=== PATIENT | male | born 1985 | race Caucasian/White ===

== ENCOUNTER 2021-04-10 20:03 | Emergency (ER) | payer OTHER ==
--- OUTSIDE RECORDS SUMMARY | 2021-04-10 20:07 | XMS REPORT | Continuity of Care Document ---
:1985 Author Organization [facility] t Address [address] [place] [address] Care Team Providers Name Role Phone Lynne SALMON Primary Care Physician LYNNE Attending Clinician Unavailable Diana CHURCH Attending Clinician Unavailable WILFREDO ARAMBULA Attending Clinician Unavailable WILFREDO ARAMBULA Attending Clinician Unavailable Payers Payer Name Policy Type Policy Number Effective Date Expiration Date S our SPECIAL INSURANCE [id number] 2020 SERVICES 00:00:00 Problems Condition Condition Condition Status Onset Resolution Last Treating Co mments Source Name Details Category Date Date Treatment Clinician Date Other Other Disease [place] psychoacti psychoacti 2-04 He alth ve ve 00:00: substance substance 00 abuse, abuse, uncomplica uncomplica cristian cristian Myasthenia Myasthenia Disease Active [facility] gravis gravis 05-31 Health 00:00: 00 Allergies, Adverse Reactions, Alerts Allergy Allergy Status Severity Reaction(s) Onset Inactive Treating Comm ents Source Name Type Date Date Clinician NO KNOWN Drug Active [facility] ALLERGIE Class ity of [facility] Social History Social Habit Start Date Stop Date Quantity Comments Source Exposure to Not sure [facility] SARS-CoV-2 (event) Alcohol intake 2021-02-07 2021-02-07 Lifetime [place] [facility] 00:00:00 00:00:00 non-drinker (finding) Tobacco use and 2020-10-25 2020-10-25 Smokeless tobacco [place] [facility] exposure 00:00:00 00:00:00 non-user Sex Ass[birth year] At [birth year] [facility] 00:00:00 00:00:00 Smoking Status Start Date Stop Date Source Never smoked tobacco [facility] Medications Ordered Filled Start Stop Current Ordering Indication Dosage Frequency Signature Comments Components Source Medication Medication Date Date Medication? Clinician (SIG) Name Name metFORMIN 2020-05- No 500mg QD Take 500 [facility] (Glucophage 0-06 10-06 mg by Health ) 500 MG 16:18: 00:00 mouth 1 tablet 32 :00 (one) time each day. tiZANidine Yes [facility] (Zanaflex) 9-22 Health 4 MG tablet 00:00: 00 glimepiride Yes 2mg QD Take 2 mg U T (Amaryl) 2 -22 by mouth 1 Hea lth MG tablet 00:00: (one) time 00 each day. metFORMIN Yes 1000mg Q.5D Take 1,000 [facility] (Glucophage 9-22 mg by Health ) 1000 MG 00:00: mouth 2 tablet 00 (two) times a day. buprenorphi Yes 1{tbl} Q.5D Place 1 U T ne-naloxone 9- tablet Health (Suboxone) 10:52: under the 8-2 MG SL 17 tongue 2 tablet (two) times a day. Melatonin Yes Take by UT 10 MG 9-09 mouth. Health capsule 10:52: 17 predniSONE Yes 20mg 20 mg. UT (Deltasone) 3-15 Health 20 MG 00:00: tablet 00 pyridostigm 0 Yes 60mg 60 mg. UT ine 7-29 Health (Mestinon) 00:00: 60 MG 00 tablet escitalopra 0 Yes 10mg 10 mg. UT m (Lexapro) 4-07 Health 10 MG 00:00: tablet 00 Vital Signs Vital Name Observation Time Observation Value Comments Source Systolic blood pressure 2021-02-07 18:16:00 134 mm[Hg] [facility] Diastolic blood pressure 2021-02-07 18:16:00 88 mm[Hg] [facility] Heart rate 2021-02-07 18:16:00 75 /min [facility] Body temperature 2021-02-07 18:16:00 36.44 Magalie [facility] ealt Body height 2021-02-07 18:16:00 182.9 cm [facility] Body weight 2021-02-07 18:16:00 98.431 kg [facility] BMI 2021-02-07 18:16:00 29.43 kg/m2 [facility] Procedures Procedure Date / Time Performed Performing Clinician Sour e POCT URINE DRUG SCREEN 2021-02-07 21:24:00 Cata Batista [facility] Encounters Start End Encounter Admission Attending Care Care Encounter Source Date/Time Date/Time Type Type Clinicians Facility Department ID 2021-02-15 Outpatient [facility] [id number] [place] 15:54:05 [id number] [facility] 2021-02-13 Outpatient [facility] [id number] [place] 11:06:57 CATA Joshi 2021-02-07 2021-02-07 Office YOLANDA Batista [id number] [place] 13:18:49 15:34:02 Visit Cata HILARIO [id number] [facility] [id number] [place] [id number] 2020-08-07 2020-08-07 Outpatient Jame CHURCH [facility] [id number] [facility] 10:40:00 10:40:00 AV[facility] 2020-08-06 2020-08-06 Outpatient [facility] [id number] [facility] 14:05:00 14:05:00 [facility] 2020-07-09 2020-07-09 Outpatient Jame CHURCH [facility] [id number] [facility] 14:50:00 14:50:00 AVA [facility] 2019-12-03 2019-12-03 Outpatient PATRICK BUENO [facility] [id number] [facility] 11:00:00 11:00:00 PATRICK ARAMBULA [facility] 2019-12-03 2019-12-03 Outpatient PATRICK ARAMBULA [facility] [id number] [facility] 11:00:00 11:00:00 PATRICK ARAMBULA [id number] [facility] Results Test Description Test Time Test Comments Results Result Comments Source POCT urine drug screen 2021-02-07 21:24:00 Test Item Value Reference Range Interpretation Comme nts THC (test code = 2420080) Negative Cocaine Screen, Urine (test code = 18789-3) None Detected None Dete cted Amphetamine Screen, Urine (test code = 9232876) Negative Methamphetamine, POC (test code = 64086-7) Negative Negative Morphine (MOP/ZFF1425) (test code = 4504301) Negative MDMA URINE (test code = 23655-5) Negative ng/mL Barbiturate Screen, Ur (test code = 36592-6) None Detected None Det ected Benzodiazepine Ur Qual (test code = 27934-4) Negative Methadone (MTD) (test code = 7038116) Negative Oxycodone Screen, Ur (test code = 18446-5) Negative PCP Scrn, Ur (test code = 40319-9) Negative TCA, Urine (test code = 11226-4) None Detected Buprenorphine, Urine (test code = 3414-0) Negative Lab Interpretation (test code = 85292-7) Abnormal [place] [facility]
[2021-04-10] MEDS ORDERED: TETANUS & DIPHTHERIA TOX,ADULT 0.5 ML VIAL ONE (20:39)
[2021-04-10] MEDS ORDERED: LIDOCAINE 1% 20 ML MDV ONE (20:39)
[2021-04-10] MEDS ORDERED: ACETAMINOPHEN 500 MG TAB ONE (20:39)
[2021-04-10 20:56] LABS: Absolute Lymphocytes (CBC) 2.1 K/uL (0.7-4.9); Basophils % 0.9 % (0-1.3); Lymphocytes % 21.5 % (15.3-44.8); MPV 7.8 fL (7.6-11.3); RBC Red Blood Cell Count 4.85 M/uL (4.33-5.43)
[2021-04-10 21:25] LABS: Albumin 4.3 g/dL (3.4-5.0); Bilirubin Total 0.3 mg/dL (0.2-1.0); Potassium 3.6 mmol/L (3.5-5.1); Protein, Total 8.4 g/dL (6.4-8.2)
[2021-04-10] MEDS ORDERED: ONDANSETRON 4 MG/2 ML VIAL ONE (21:25)
[2021-04-10] MEDS ORDERED: FENTANYL CITR 100 MCG/2 ML ONE (21:25)
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
--- NOTE | 2021-04-10 21:47 | RAD REPORT ---
EXAM DESCRIPTION: RAD - Knee Right 3 View - 04/10/2021 9:10 pm CLINICAL HISTORY: Right knee pain status post injury FINDINGS: Curvilinear lucencies within the inferior aspect of the patella probably nondisplaced frac ture. No dislocation. Soft tissue laceration
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
[2021-04-10] MEDS ORDERED: HYDROMORPHONE HCL 1 MG/ML INJ ONE (22:28)
[2021-04-10] MEDS ORDERED: LIDOCAINE 1% W/EPI 1:100,000 MDV 50 ML VIAL ONE (22:28)
[2021-04-10] MEDS ORDERED: NA CHLORIDE 0.9% 1,000 ML ONE (22:56)
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
[2021-04-11 01:59] VITALS: TEMP 97.6
[2021-04-11 02:03] VITALS: BP 91/66; O2SAT 96
== END 2021-04-11 01:51 | disposition home or self-care (01) ==
LOC: ER 20:03
PROC: 0JQJ0ZZ Repair Right Hand Subcutaneous Tissue and Fascia, Open Approach (ICD-10-PCS; principal; 2021-04-11)
PROC: 0JQN0ZZ Repair Right Lower Leg Subcutaneous Tissue and Fascia, Open Approach (ICD-10-PCS; 2021-04-11)
DX: S62.315A Displaced fracture of base of fourth metacarpal bone, left hand, initial encounter for closed fracture (principal); S82.001A Unspecified fracture of right patella, initial encounter for closed fracture; S81.011A Laceration without foreign body, right knee, initial encounter; S61.411A Laceration without foreign body of right hand, initial encounter; S30.1XXA Contusion of abdominal wall, initial encounter; V49.40XA Driver injured in collision with unspecified motor vehicles in traffic accident, initial encounter; E11.9 Type 2 diabetes mellitus without complications; Z23 Encounter for immunization
CPT/HCPCS: 85025; 36415; 86900; 86850; 82565; 86901; 80053; 70450; 72125; 71260; 74177; 73130; 73562; 90471; 90714; 96375; 96374; 99285; 12004; Q9967; J3010; J1170; J7030; J2405

== ENCOUNTER 2024-12-23 12:23 | Emergency (ER) | payer SELFPAY ==
[2024-12-23 13:06] LABS: Urine Microscopic Reflex YN NO UMIC
[2024-12-23 13:07] LABS: Absolute Lymphocytes (CBC) 1.3 K/uL (0.7-4.9); Hematocrit 47.2 % (39.6-49.0); Hemoglobin 16.9 g/dL (13.6-17.9); MCH 29.7 pg (27.0-35.0); MCHC 35.8 g/dL (32.0-36.0); MCV 83.1 fL (80-100); MPV 7.5 fL (7.6-11.3); Nucleated RBC Absolute Count 0.0 (0-0); Nucleated Red Blood Cells % 0.5 % (0-0); RBC Red Blood Cell Count 5.68 M/uL (4.33-5.43); White Blood Count 6.40 thou/uL (4.3-10.9)
[2024-12-23 13:24] LABS: Influenza A Ag Negative; Influenza B Ag Negative; SARS-CoV-2 Antigen Rapid Res Negative (Negative)
[2024-12-23 13:25] LABS: ALT/SGPT 39.0 U/L (16-61); AST/SGOT 15.0 U/L (15-37); Albumin 4.0 g/dL (3.4-5.0); Albumin/Globulin Ratio 1.0 (1.1-1.8); Alkaline Phosphatase 50.0 U/L (45-117); Anion Gap 11.7 mEq/L (5.0-15.0); BUN Blood Urea Nitrogen 3.0 mg/dL (7-18); Globulin 3.9 g/dL (2.3-3.5); Glucose Level 278.0 mg/dL (74-106); Lipase 43.0 U/L (13-75); Potassium 2.7 mEq/L (3.5-5.1); Troponin High Sensitivity 6.2 pg/mL (<58.9)
--- NOTE | 2024-12-23 14:09 | RAD REPORT ---
EXAMINATION: TWO VIEW CHEST XR CLINICAL INDICATION: Male, 39 years old. [facility] MAIN COUGH Bed: TECHNIQUE: 2 view radiographs of the chest were performed. COMPARISON: 02/16/2013 FINDINGS: The lungs are well inflated and clear. No pneumothorax or sizable effusion. The heart is normal in si ze. Mediastinal contours are unchanged with sequelae of median sternotomy. IMPRESSION: No acute or significant abnormalities.
[2024-12-23] MEDS ORDERED: NA CHLORIDE 0.9% 1,000 ML ONE (14:55)
--- NOTE | 2024-12-23 15:39 | EDPHYS ---
Physician Documentation [facility] Name: Woo Ballesteros Age: 39 yrs Sex: Male : 1985 Arrival Date: 12/23/2024 Time: 12:23 Bed 8 Private MD: BENITA Physician Javy Flores HPI: 12/23 15:34 This 39 yrs old Male presents to ER via Ambulatory with complaints of Pain elma All Over, Vomiting. 15:34 The patient presents to the emergency department with nausea, vomiting. Onset: The elma symptoms/episode began/occurred 3 day(s) ago. Possible causes: unknown. The symptoms are aggravated by movement, The symptoms are alleviated by remaining still. Associated signs and symptoms: Pertinent positives: anorexia, nausea, vomiting. Severity of symptoms: At their worst the symptoms were mild moderate in the emergency department the symptoms are unchanged. The patient has experienced similar episodes in the past, multiple times. Historical: - Allergies: 12:35 No Known Drug Allergies; me1 - PMHx: 12:35 diabetes mellitus; muscular dystrophy; Myasthenia Gravis; me1 - PSHx: 12:35 ear tubes; Thymectomy; me1 - Immunization history:: Adult Immunizations up to date. - Infectious Disease History:: Denies. - Social history:: Smoking status: Patient denies any tobacco usage or history of. ROS: 15:35 Constitutional: Negative for fever, chills, and weight loss, Eyes: Negative for injury, elma pain, redness, and discharge, ENT: Negative for injury, pain, and discharge, Neck: Negative for injury, pain, and swelling, Cardiovascular: Negative for chest pain, palpitations, and edema, Respiratory: Negative for shortness of breath, cough, wheezing, and pleuritic chest pain, Back: Negative for injury and pain, : Negative for injury, bleeding, discharge, and swelling, MS/Extremity: Negative for injury and deformity, Skin: Negative for injury, rash, and discoloration, Psych: Negative for depression, anxiety, suicide ideation, homicidal ideation, and hallucinations, Allergy/Immunology: Negative for hives, rash, and allergies, Endocrine: Negative for neck swelling, polydipsia, polyuria, polyphagia, and marked weight changes, Hematologic/Lymphatic: Negative for swollen nodes, abnormal bleeding, and unusual bruising, 15:35 Abdomen/GI: Positive for nausea and vomiting, 15:35 Neuro: Positive for weakness, Exam: 14:59 ECG was reviewed by the Attending Physician. elma 15:35 Constitutional: This is a well developed, well nourished patient who is awake, alert, elma and in no acute distress. Head/Face: Normocephalic, atraumatic. Eyes: Pupils equal round and reactive to light, extra-ocular motions intact. Lids and lashes normal. Conjunctiva and sclera are non-icteric and not injected. Cornea within normal limits. Periorbital areas with no swelling, redness, or edema. ENT: Nares patent. No nasal discharge, no septal abnormalities noted. Tympanic membranes are normal and external auditory canals are clear. Oropharynx with no redness, swelling, or masses, exudates, or evidence of obstruction, uvula midline. Mucous membranes moist. Neck: Trachea midline, no thyromegaly or masses palpated, and no cervical lymphadenopathy. Supple, full range of motion without nuchal rigidity, or vertebral point tenderness. No Meningismus. Chest/axilla: Normal chest wall appearance and motion. Nontender with no deformity. No lesions are appreciated. Cardiovascular: Regular rate and rhythm with a normal S1 and S2. No gallops, murmurs, or rubs. Normal PMI, no JVD. No pulse deficits. Respiratory: Lungs have equal breath sounds bilaterally, clear to auscultation and percussion. No rales, rhonchi or wheezes noted. No increased work of breathing, no retractions or nasal flaring. Abdomen/GI: Soft, non-tender, with normal bowel sounds. No distension or tympany. No guarding or rebound. No evidence of tenderness throughout. Back: No spinal tenderness. No costovertebral tenderness. Full range of motion. Male : Normal genitalia with no discharge or lesions. Skin: Warm, dry with normal turgor. Normal color with no rashes, no lesions, and no evidence of cellulitis. MS/ Extremity: Pulses equal, no cyanosis. Neurovascular intact. Full, normal range of motion., bilateral aka Neuro: Awake and alert, GCS 15, oriented to person, place, time, and situation. Cranial nerves II-XII grossly intact. Motor strength 5/5 in all extremities. Sensory grossly intact. Cerebellar exam normal. Normal gait. Psych: Awake, alert, with orientation to person, place and time. Behavior, mood, and affect are within normal limits. Vital Signs: 12:33 BP 151 / 105; Pulse 96; Resp 18; Temp 98.5; Pulse Ox 100% ; Weight 97.52 kg; Height 6 me1 ft. 0 in. ; Pain 3/10; 15:02 BP 150 / 88; Pulse 84; Resp 16; Pulse Ox 99% ; bp 16:14 BP 147 / 79; Pulse 75; Resp 16; Pulse Ox 98% ; bp 12:33 Body Mass Index 29.16 (97.52 kg, 182.88 cm) me1 12:33 Pain Scale: Adult me1 Karen Coma Score: 15:36 Eye Response: spontaneous(4). Motor Response: obeys commands(6). Verbal Response: elma oriented(5). Total: 15. MDM: 12:27 Medical Screening Exam initiated elma 15:36 Data reviewed: vital signs, nurses notes, lab test result(s), EKG. [facility] 12/23 12:29 Order name: CBC with Diff; Complete Time: 15:[address] [facility] 12/23 12:29 Order name: CMP; Complete Time: 15:[address] [facility] 12/23 12:29 Order name: Lipase; Complete Time: 15:[address] [facility] 12/23 12:29 Order name: UA Rfx Raimundo Cult if indicated; Complete Time: 15:[address] [facility] 12/23 12:29 Order name: Troponin High Sensitivity; Complete Time: 15:[address] [facility] 12/23 12:29 Order name: COVID-19 Ag + Flu A+B Ag; Complete Time: 15:[address] [facility] 12/23 12:29 Order name: Chest Pa And Lat (2 Views) XRAY; Complete Time: 15:[address] [facility] 12/23 12:29 Order name: EKG - Nurse/Tech; Complete Time: 14:[address] [facility] 12/23 15:27 Order name: Misc. Order: juice; Complete Time: 15:[address] [facility] EC:59 Rate is 79 beats/min. Rhythm is regular. QRS [place] is Normal. HI interval is normal. QRS elma interval is normal. QT interval is normal. No Q waves. T waves are Normal. Clinical impression: NSR w/ Non-specific ST/T Changes and No evidence of ischemia. Interpreted by me. Reviewed by me. Administered Medications: 15:02 Drug: NS 0.9% IV 1000 ml IV at 1000 ml once; to be given as a bolus over 60 minutes bp Route: IV; Rate: 1000 ml; Site: right antecubital; 16:15 Follow up: IV Status: Completed infusion bp 15:58 Drug: Potassium PO Effervescent Tablet 50 mEq PO once; dissolve in 4 ounces of water or bp juice Route: PO; 15:59 Follow up: Response: No adverse reaction bp 15:58 Drug: MethylPrednisoLONE IVP 125 mg IVP once Route: IVP; Site: right antecubital; bp 15:59 Follow up: Response: No adverse reaction bp 15:58 Drug: Famotidine IVP 20 mg IVP once; dilute with 10 mL 0.9% NaCl; give over 2 minutes bp Route: IVP; Site: right antecubital; 15:59 Follow up: Response: No adverse reaction bp 15:58 Drug: Potassium PO Effervescent Tablet 25 mEq PO once; dissolve in 4 ounces of water or bp juice prior to discharge Route: PO; 15:59 Follow up: Response: No adverse reaction bp 15:59 Drug: Ondansetron IVP 4 mg IVP once; over 2 minutes Route: IVP; Site: right antecubital;bp 15:59 Follow up: Response: No adverse reaction bp Disposition Summary: 12/23/24 15:38 Discharge Ordered Notes: Location: Home elma Problem: new elma Symptoms: have improved elma Condition: Stable elma Diagnosis - Hypokalemia elma - Type 2 diabetes mellitus with hyperglycemia elma - Weakness elma - Vomiting elma - Hypo-osmolality and hyponatremia elma - Myasthenia gravis elma - Unspecified symptoms and signs involving the musculoskeletal system - hx of elma MUSCULAR DYSTROPHY Followup: elma - With: Private Physician - When: 2 - 3 days - Reason: Recheck today's complaints, Continuance of care, Re-evaluation by your physician Discharge Instructions: - Discharge Summary Sheet elma - Potassium Content of Foods elma - Hyperglycemia elma - Hyponatremia elma - Weakness elma - Diabetes Mellitus and Nutrition, Adult elma - Hyponatremia, [id number] elma - Weakness, [id number] elma - Hypokalemia elma - Deconditioning elma Forms: - Medication Reconciliation Form elma - Antibiotic Education elma - Prescription Opioid Use elma - Patient Portal Instructions elma - Leadership Thank You Letter elma Prescriptions: - ondansetron 4 mg Oral Tablet,disintegrating - take 1 tablet ORAL route every 6 hours as needed for nausea and vomiting; 20 elma tablet; Refills: 0, Product Selection Permitted - Potassium Chloride 20 meq Oral Packet - take 1 packet ORAL route every 12 hours 1 packet in 6 (six) ounces of water or elma juice; Take after meal; 14 packet; Refills: 0, Product Selection Permitted Signatures: Dispatcher [employer] EDMS Javy Flores MD MD cha Peltier, Brian, RN RN bp Lizzie Gibson RN RN me1 Corrections: (The following items were deleted from the chart) 12:29 CBC+H.LAB.BRZ ordered. EDMS EDMS 12:29 COMPREHENSIVE METABOLIC PANEL+C.LAB.BRZ ordered. EDMS EDMS 12:29 LIPASE+C.LAB.BRZ ordered. EDMS EDMS 12:29 UA Rfx Raimundo Cult if indicated+U.LAB.BRZ ordered. EDMS EDMS : 12:29 Troponin High Sensitivity+C.LAB.BRZ ordered. EDMS EDMS : 12:29 COVID-19 Ag + Flu A+B Ag+I.LAB.BRZ ordered. EDMS EDMS 12: 12:29 Chest Pa And Lat (2 Views)+RAD.RAD.BRZ ordered. EDMS EDMS
--- NOTE | 2024-12-23 15:39 | ER ---
Nurse's Notes [facility] Name: Woo Ballesteros Age: 39 yrs Sex: Male : 1985 Arrival Date: 12/23/2024 Time: 12:23 Bed 8 Private MD: Diagnosis: Hypokalemia;Type 2 diabetes mellitus with hyperglycemia;Weakness;Vomiting;Hypo-osmolality and hyponatremia;Myasthenia gravis;Unspecified symptoms and signs involving the musculoskeletal system-hx of MUSCULAR DYSTROPHY Presentation: 12/23 12:33 Chief complaint: Patient states: sob, n/v x 5 day, unable to keep meds down. Takes me1 prednisone for Myasthenia gravis and hasnt been able to keep meds down. Coronavirus screen: Vaccine status: Patient reports receiving the 2nd dose of the covid vaccine. Ebola Screen: No symptoms or risks identified at this time. Initial Sepsis Screen: Does the patient meet any 2 criteria? HR > 90 bpm. Does the patient have a suspected source of infection? No. Patient's initial sepsis screen is negative. Risk Assessment: Do you want to hurt yourself or someone else? Patient reports no desire to harm self or others. Onset of symptoms was December 18, 2024. 12:33 Method Of Arrival: Ambulatory [facility] [place] 12:33 Acuity: MARK 3 me1 Triage Assessment: 15:03 General: Appears in no apparent distress. Behavior is calm, cooperative, appropriate bp for age. Pain: Complains of pain in GENERALIZED. EENT: No deficits noted. Neuro: No deficits noted. Cardiovascular: No deficits noted. Respiratory: No deficits noted. GI: Reports nausea. : No signs and/or symptoms were reported regarding the genitourinary system. Derm: No deficits noted. Musculoskeletal: No deficits noted. Historical: - Allergies: 12:35 No Known Drug Allergies; me1 - PMHx: 12:35 diabetes mellitus; muscular dystrophy; Myasthenia Gravis; me1 - PSHx: 12:35 ear tubes; Thymectomy; me1 - Immunization history:: Adult Immunizations up to date. - Infectious Disease History:: Denies. - Social history:: Smoking status: Patient denies any tobacco usage or history of. Screenin:03 [facility] ED Fall Risk Assessment (Adult) History of falling in the last 3 months, bp including since admission No falls in past 3 months (0 pts) Confusion or Disorientation No (0 pts) Intoxicated or Sedated No (0 pts) Impaired Gait No (0 pts) Mobility Assist Device Used No (0 pt) Altered Elimination No (0 pt) Score/Fall Risk Level 0 - 2 = Low Risk Oriented to surroundings. Abuse screen: Denies threats or abuse. Denies injuries from another. Nutritional screening: No deficits noted. Tuberculosis screening: No symptoms or risk factors identified. Assessment: 15:03 General: SEE TRIAGE NOTE. GI: Abdomen is non-distended. bp Vital Signs: 12:33 BP 151 / 105; Pulse 96; Resp 18; Temp 98.5; Pulse Ox 100% ; Weight 97.52 kg; Height 6 me1 ft. 0 in. ; Pain 3/10; 15:02 BP 150 / 88; Pulse 84; Resp 16; Pulse Ox 99% ; bp 16:14 BP 147 / 79; Pulse 75; Resp 16; Pulse Ox 98% ; bp 12:33 Body Mass Index 29.16 (97.52 kg, 182.88 cm) me1 12:33 Pain Scale: Adult me1 [place] Coma Score: 15:36 Eye Response: spontaneous(4). Motor Response: obeys commands(6). Verbal Response: elma oriented(5). Total: 15. ED Course: 12:25 Patient arrived in ED. im 12:27 Javy Flores MD is Attending Physician. [facility] 12:35 Triage completed. me1 12:35 Arm band placed on Patient placed in waiting room. me1 12:55 COVID-19 Ag + Flu A+B Ag Sent. ts3 12:55 Initial lab(s) drawn, by stucco laborer, sent to lab. Inserted saline lock: 18 gauge in right ts3 antecubital area, using aseptic technique. Blood collected. Flushed with 10 mL NS. 12:55 Urine collected: clean catch specimen, sent to lab. ts3 13:35 Chest Pa And Lat (2 Views) XRAY In Process Unspecified. EDMS 14:51 EKG done, by emergency room technician. ts3 14:58 Js Sage, RN is Primary Nurse. bp 15:03 Patient has correct armband on for positive identification. bp 16:14 No provider procedures requiring assistance completed. IV discontinued, intact, bp bleeding controlled, No redness/swelling at site. Pressure dressing applied. Administered Medications: 15:02 Drug: NS 0.9% IV 1000 ml IV at 1000 ml once; to be given as a bolus over 60 minutes bp Route: IV; Rate: 1000 ml; Site: right antecubital; 16:15 Follow up: IV Status: Completed infusion bp 15:58 Drug: Potassium PO Effervescent Tablet 50 mEq PO once; dissolve in 4 ounces of water or bp juice Route: PO; 15:59 Follow up: Response: No adverse reaction bp 15:58 Drug: MethylPrednisoLONE IVP 125 mg IVP once Route: IVP; Site: right antecubital; bp 15:59 Follow up: Response: No adverse reaction bp 15:58 Drug: Famotidine IVP 20 mg IVP once; dilute with 10 mL 0.9% NaCl; give over 2 minutes bp Route: IVP; Site: right antecubital; 15:59 Follow up: Response: No adverse reaction bp 15:58 Drug: Potassium PO Effervescent Tablet 25 mEq PO once; dissolve in 4 ounces of water or bp juice prior to discharge Route: PO; 15:59 Follow up: Response: No adverse reaction bp 15:59 Drug: Ondansetron IVP 4 mg IVP once; over 2 minutes Route: IVP; Site: right antecubital;bp 15:59 Follow up: Response: No adverse reaction bp Medication: 15:03 VIS not applicable for this client. bp Outcome: 15:38 Discharge ordered by . elma 16:14 Discharged to home ambulatory, with family, bp 16:14 Condition: stable 16:14 Discharge instructions given to patient, family, Instructed on discharge instructions, follow up and referral plans. medication usage, Demonstrated understanding of instructions, follow-up care, medications, Prescriptions given X 2, 16:15 Patient left the ED. bp Signatures: Dispatcher [employer] Javy Stover MD MD cha Peltier, Brian, RN RN bp Genoveva Peraza Michelle, RN RN mi1 Adela Garcia ts3
[2024-12-23] MEDS ORDERED: METHYLPREDNISOLONE 125 MG INJ ONE (15:50)
[2024-12-23] MEDS ORDERED: POTASSIUM 25 MEQ EFFERV TAB ONE (15:50)
[2024-12-23] MEDS ORDERED: ONDANSETRON 4 MG/2 ML VIAL ONE (15:50)
[2024-12-23] MEDS ORDERED: FAMOTIDINE 20 MG/2 ML VIAL IV ONE (15:51)
[2024-12-23 17:47] VITALS: TEMP 98.5
[2024-12-23 17:49] VITALS: BP 147/79; O2SAT 98
== END 2024-12-23 16:15 | disposition home or self-care (01) ==
LOC: ER 12:23
DX: G70.00 Myasthenia gravis without (acute) exacerbation (principal); E11.65 Type 2 diabetes mellitus with hyperglycemia; E87.6 Hypokalemia; R53.1 Weakness; R11.10 Vomiting, unspecified; E87.1 Hypo-osmolality and hyponatremia; R29.91 Unspecified symptoms and signs involving the musculoskeletal system; G71.00 Muscular dystrophy, unspecified; Z11.52 Encounter for screening for COVID-19
CPT/HCPCS: 36415; 71046; 80053; 81003; 83690; 84484; 85025; 87428; 93005; 96361; 96374; 96375; 99284; J2405; J2919; J7030

== ENCOUNTER 2025-02-25 12:21 | Emergency (ER) | payer OTHER, SELFPAY ==
[2025-02-25 13:23] LABS: Absolute Lymphocytes (CBC) 1.2 K/uL (0.7-4.9); Hematocrit 45.3 % (39.6-49.0); Hemoglobin 16.1 g/dL (13.6-17.9); MCH 29.7 pg (27.0-35.0); MCHC 35.4 g/dL (32.0-36.0); MCV 83.8 fL (80-100); MPV 8.5 fL (7.6-11.3); Nucleated RBC Absolute Count 0.0 (0-0); Nucleated Red Blood Cells % 0.1 % (0-0); RBC Red Blood Cell Count 5.41 M/uL (4.33-5.43); White Blood Count 7.30 thou/uL (4.3-10.9)
[2025-02-25 13:32] LABS: ALT/SGPT 41.0 U/L (16-61); AST/SGOT 19.0 U/L (15-37); Albumin 3.8 g/dL (3.4-5.0); Albumin/Globulin Ratio 0.9 (1.1-1.8); Alkaline Phosphatase 60.0 U/L (45-117); Anion Gap 15.1 mEq/L (5.0-15.0); BUN Blood Urea Nitrogen 9.0 mg/dL (7-18); Globulin 4.4 g/dL (2.3-3.5); Glucose Level 224.0 mg/dL (74-106); Lipase 32.0 U/L (13-75); Potassium 3.1 mEq/L (3.5-5.1)
[2025-02-25] MEDS ORDERED: ONDANSETRON 4 MG/2 ML VIAL ONE (14:00)
[2025-02-25] MEDS ORDERED: METHYLPREDNISOLONE 125 MG INJ ONE (14:00)
[2025-02-25] MEDS ORDERED: POTASSIUM 25 MEQ EFFERV TAB ONE (14:01)
[2025-02-25] MEDS ORDERED: NA CHLORIDE 0.9% 2,000 ML ONE (14:01)
--- NOTE | 2025-02-25 14:40 | ER ---
Nurse's Notes [facility] Name: Woo Ballesteros Age: 39 yrs Sex: Male : 1985 Arrival Date: 02/25/2025 Time: 12:21 Bed 6 Private MD: Diagnosis: Gastroenteritis, nausea vomiting, myasthenia gravis, hypokalemia, hyponatremia Presentation: 02/25 12:30 Chief complaint: Patient states: nausea and vomiting x 8 days ago, unable to keep food aa5 down. Pt c/o abd aching/discomfort. 12:30 Onset of symptoms was February 2025. aa5 12:30 Acuity: MARK 3 aa5 12:30 Initial Sepsis Screen: Does the patient meet any 2 criteria? No. Patient's initial aa5 sepsis screen is negative. Does the patient have a suspected source of infection? No. Patient's initial sepsis screen is negative. Risk Assessment: Do you want to hurt yourself or someone else? Patient reports no desire to harm self or others. 12:30 Coronavirus screen: vomiting. Ebola Screen: Patient denies travel to an Ebola-affected [facility] area in the 21 days before illness onset. 12:30 Method Of Arrival: EMS: [facility] 12:30 Care prior to arrival: Glucose check: 229. aa5 Historical: - Allergies: 12:37 No Known Allergies; aa5 - PMHx: 12:37 diabetes mellitus; muscular dystrophy; Myasthenia Gravis; aa5 12:37 Opiod abuse- previous hx; aa5 - PSHx: 12:37 ear tubes; Thymectomy; aa5 - Immunization history:: Adult Immunizations unknown. - Infectious Disease History:: Denies. - Social history:: Smoking status: unknown. Screenin:30 [facility] ED Fall Risk Assessment (Adult) History of falling in the last 3 months, aa5 including since admission No falls in past 3 months (0 pts) Confusion or Disorientation No (0 pts) Intoxicated or Sedated No (0 pts) Impaired Gait No (0 pts) Mobility Assist Device Used No (0 pt) Altered Elimination No (0 pt) Score/Fall Risk Level 0 - 2 = Low Risk Oriented to surroundings, Maintained a safe environment, Educated pt \T\ family on fall prevention, incl call for assistance when getting out of bed, Assessed \T\ reinforced patient's understanding of fall precautions. Abuse screen: Denies threats or abuse. Nutritional screening: No deficits noted. Tuberculosis screening: No symptoms or risk factors identified. Assessment: 12:30 General: Appears comfortable, Behavior is calm, cooperative. Pain: Complains of pain in aa5 right upper quadrant, left upper quadrant, right lower quadrant and left lower quadrant Pain currently is 5 out of 10 on a pain scale. Quality of pain is described as aching, Pain began 1 week ago Is intermittent. Neuro: Level of Consciousness is awake, alert, obeys commands, Oriented to person, place, time, situation. Cardiovascular: Patient's skin is warm and dry. Respiratory: Airway is patent Respiratory effort is even, unlabored, Respiratory pattern is regular, symmetrical. GI: Abdomen is round non-distended, Bowel sounds present X 4 quads. Abd is soft and non tender X 4 quads. Reports intolerance of fluids, intolerance of food, nausea, vomiting. : No signs and/or symptoms were reported regarding the genitourinary system. EENT: No signs and/or symptoms were reported regarding the EENT system. Derm: Skin is pink, warm \T\ dry. Musculoskeletal: Range of motion: intact in all extremities. 13:15 Reassessment: Patient is alert, oriented x 3, equal unlabored respirations, skin aa5 warm/dry/pink. Pt ambulatory to restroom . 14:16 Reassessment: Patient and/or family updated on plan of care and expected duration. Pain ss level reassessed. Patient is alert, oriented x 3, equal unlabored respirations, skin warm/dry/pink. General: Appears in no apparent distress. 14:54 Reassessment: awaiting fluid completion prior to discharge. ap3 14:56 Reassessment: Patient and/or family updated on plan of care and expected duration. Pain ap3 level reassessed. Patient is alert, oriented x 3, equal unlabored respirations, skin warm/dry/pink. General: Appears in no apparent distress. Behavior is calm, cooperative, appropriate for age. Vital Signs: 12:30 BP 173 / 101; Pulse 96; Resp 18 S; Temp 98.2(O); Pulse Ox 97% on R/A; Weight 99.79 kg aa5 (R); Height 6 ft. 0 in. (R); Pain 5/10; 15:54 BP 154 / 87; Pulse 86; Resp 17; Pulse Ox 100% on R/A; ap3 12:30 Body Mass Index 29.84 (99.79 kg, 182.88 cm) aa5 12:30 Pain Scale: Adult aa5 ED Course: 12:30 Patient arrived in ED. eb 12:30 Client placed on continuous cardiac and pulse oximetry monitoring. NIBP monitoring aa5 applied. monitor car operator on. Pulse ox on. NIBP on. 12:30 Patient has correct armband on for positive identification. Bed in low position. Call aa5 light in reach. Side rails up X2. 12:31 Chastity Dodson, BARRON is Primary Nurse. aa5 12:34 Brandon Cleveland MD is Attending Physician. sp3 12:45 Inserted saline lock: 22 gauge in right wrist, using aseptic technique. Blood ap3 collected. Flushed with 10 mL NS. 12:50 Triage completed. aa5 14:10 No provider procedures requiring assistance completed. aa5 14:56 Arm band placed on right wrist. ap3 14:56 Provided Education on: medications prior to administration . ap3 15:54 IV discontinued, intact, bleeding controlled, No redness/swelling at site. Pressure ap3 dressing applied. Administered Medications: 14:15 Drug: MethylPrednisoLONE IVP 125 mg IVP once Route: IVP; Site: right antecubital; ss 14:55 Follow up: Response: No adverse reaction ap3 14:15 Drug: Ondansetron IVP 4 mg IVP once; over 2 minutes Route: IVP; Site: right antecubital;ss 14:55 Follow up: Response: No adverse reaction; Nausea is decreased ap3 14:15 Drug: NS 0.9% IV 1000 ml IV at 1 bolus Per protocol; to be given as a bolus over 60 ss minutes Route: IV; Rate: 1 bolus; Site: right antecubital; 15:53 Follow up: IV Status: Completed infusion; IV Intake: 1000ml ap3 14:15 Drug: Potassium PO Effervescent Tablet 50 mEq PO once; dissolve in 4 ounces of water or ss juice Route: PO; 14:55 Follow up: Response: No adverse reaction ap3 14:15 Drug: NS 0.9% IV 1000 ml IV at 1000 ml once; to be given as a bolus over 60 minutes ss Route: IV; Rate: 1000 ml; Site: right antecubital; 15:53 Follow up: IV Status: Completed infusion; IV Intake: 1000ml ap3 Medication: 14:10 VIS not applicable for this client. aa5 Intake: 15:53 IV: 1000ml; Total: 1000ml. ap3 15:53 IV: 1000ml; Total: 2000ml. ap3 Outcome: 14:40 Discharge ordered by MD. sp3 15:53 Discharged to home ambulatory, with family, ap3 15:53 Condition: good 15:53 Discharge instructions given to patient, Instructed on discharge instructions, follow up and referral plans. medication usage, Demonstrated understanding of instructions, follow-up care, medications, Prescriptions given X 1, 15:54 Patient left the ED. ap3 Signatures: Chastity Dodson RN RN aa5 Chio Estrada RN RN ss Salma Clarke RN RN ap3 Yin Santiago Setul, MD MD sp3 Corrections: (The following items were deleted from the chart) 14:10 12:35 Client placed on continuous cardiac and pulse oximetry monitoring. NIBP aa5 monitoring applied. monitor car operator on. Pulse ox on. NIBP on. ap3
--- NOTE | 2025-02-25 14:40 | EDPHYS ---
Physician Documentation [facility] Name: Woo Ballesteros Age: 39 yrs Sex: Male : 1985 Arrival Date: 02/25/2025 Time: 12:21 Bed 6 Private MD: ED Physician Brandon Cleveland HPI: 02/25 13:37 This 39 yrs old Male presents to ER via EMS with complaints of Nausea/Vomiting. sp3 13:37 39-year-old male with history of myasthenia gravis, diabetes, prior opioid abuse not sp3 currently using, presents to the ED with vomiting and diarrhea for the last week causing weakness. He states he is unable to take his prednisone which he takes to control his myasthenia. He denies any fever, blood in any extremities, melena, fever, headache, chest pain, shortness of breath, back pain, dysuria, syncope, or any other signs or symptoms on ROS at this time.. Historical: - Allergies: 12:37 No Known Allergies; aa5 - PMHx: 12:37 diabetes mellitus; muscular dystrophy; Myasthenia Gravis; aa5 12:37 Opiod abuse- previous hx; aa5 - PSHx: 12:37 ear tubes; Thymectomy; aa5 - Immunization history:: Adult Immunizations unknown. - Infectious Disease History:: Denies. - Social history:: Smoking status: unknown. ROS: 13:38 Constitutional: Negative for fever, chills, and weight loss, Eyes: Negative for injury, sp3 pain, redness, and discharge, Neck: Negative for injury, pain, and swelling, Cardiovascular: Negative for chest pain, palpitations, and edema, Respiratory: Negative for shortness of breath, cough, wheezing, and pleuritic chest pain, Back: Negative for injury and pain, MS/Extremity: Negative for injury and deformity, Skin: Negative for injury, rash, and discoloration, Psych: Negative for depression, anxiety, suicide ideation, homicidal ideation, and hallucinations, Endocrine: Negative for neck swelling, polydipsia, polyuria, polyphagia, and marked weight changes, Hematologic/Lymphatic: Negative for swollen nodes, abnormal bleeding, and unusual bruising, 13:38 All other systems are negative, Exam: 13:38 Constitutional: This is a well developed, well nourished patient who is awake, alert, sp3 and in no acute distress. Head/Face: Normocephalic, atraumatic. Eyes: Pupils equal round and reactive to light, extra-ocular motions intact. Lids and lashes normal. Conjunctiva and sclera are non-icteric and not injected. Cornea within normal limits. Periorbital areas with no swelling, redness, or edema. ENT: Nares patent. No nasal discharge, no septal abnormalities noted. External auditory canals are clear. Oropharynx with no redness, swelling, or masses, exudates, or evidence of obstruction, uvula midline. Mucous membranes moist. Neck: Trachea midline, no thyromegaly or masses palpated, and no cervical lymphadenopathy. Supple, full range of motion without nuchal rigidity, or vertebral point tenderness. No Meningismus. Chest/axilla: Normal chest wall appearance and motion. Nontender with no deformity. No lesions are appreciated. Cardiovascular: Regular rate and rhythm with a normal S1 and S2. No gallops, murmurs, or rubs. Normal PMI, no JVD. No pulse deficits. Respiratory: Lungs have equal breath sounds bilaterally, clear to auscultation and percussion. No rales, rhonchi or wheezes noted. No increased work of breathing, no retractions or nasal flaring. Abdomen/GI: Soft, non-tender, with normal bowel sounds. No distension or tympany. No guarding or rebound. No evidence of tenderness throughout. Back: No spinal tenderness. No costovertebral tenderness. Full range of motion. Skin: Warm, dry with normal turgor. Normal color with no rashes, no lesions, and no evidence of cellulitis. MS/ Extremity: Pulses equal, no cyanosis. Neurovascular intact. Full, normal range of motion. Neuro: Awake and alert, GCS 15, oriented to person, place, time, and situation. Cranial nerves II-XII grossly intact. Motor strength 5/5 in all extremities. Sensory grossly intact. Cerebellar exam normal. Normal gait. Psych: Awake, alert, with orientation to person, place and time. Behavior, mood, and affect are within normal limits. 13:38 Neuro: No objective weakness noted., Vital Signs: 12:30 BP 173 / 101; Pulse 96; Resp 18 S; Temp 98.2(O); Pulse Ox 97% on R/A; Weight 99.79 kg aa5 (R); Height 6 ft. 0 in. (R); Pain 5/10; 15:54 BP 154 / 87; Pulse 86; Resp 17; Pulse Ox 100% on R/A; ap3 12:30 Body Mass Index 29.84 (99.79 kg, 182.88 cm) aa5 12:30 Pain Scale: Adult aa5 MDM: 12:53 Medical Screening Exam initiated sp3 13:39 Data reviewed: vital signs, nurses notes, old medical records, lab test result(s). ED sp3 course: 39-year-old male with vomiting, diarrhea and mild abdominal cramping. Differential diagnosis includes viral illness, gastroenteritis, foodborne illness, among others which are then further adversely affecting patient due to him not being able to take his p.o. meds for his myasthenia gravis causing some fatigue from that standpoint as well. We will give IV Solu-Medrol, IV ondansetron and 2 L of IV fluids. General labs demonstrate hyponatremia at 129 and hypokalemia at 3.1. If and when patient feels better, we will safely discharge patient home.. 02/25 12:52 Order name: CBC with Diff; Complete Time: 13:35 aa5 02/25 12:52 Order name: CMP; Complete Time: 13:35 aa5 02/25 12:52 Order name: Lipase; Complete Time: 13:35 aa5 02/25 12:52 Order name: IV Saline Lock; Complete Time: 12:53 aa5 02/25 12:52 Order name: Labs collected and sent; Complete Time: 12:53 aa5 Administered Medications: 14:15 Drug: MethylPrednisoLONE IVP 125 mg IVP once Route: IVP; Site: right antecubital; ss 14:55 Follow up: Response: No adverse reaction ap3 14:15 Drug: Ondansetron IVP 4 mg IVP once; over 2 minutes Route: IVP; Site: right antecubital;ss 14:55 Follow up: Response: No adverse reaction; Nausea is decreased ap3 14:15 Drug: NS 0.9% IV 1000 ml IV at 1 bolus Per protocol; to be given as a bolus over 60 ss minutes Route: IV; Rate: 1 bolus; Site: right antecubital; 15:53 Follow up: IV Status: Completed infusion; IV Intake: 1000ml ap3 14:15 Drug: Potassium PO Effervescent Tablet 50 mEq PO once; dissolve in 4 ounces of water or ss juice Route: PO; 14:55 Follow up: Response: No adverse reaction ap3 14:15 Drug: NS 0.9% IV 1000 ml IV at 1000 ml once; to be given as a bolus over 60 minutes ss Route: IV; Rate: 1000 ml; Site: right antecubital; 15:53 Follow up: IV Status: Completed infusion; IV Intake: 1000ml ap3 Disposition Summary: 02/25/25 14:40 Discharge Ordered Notes: Location: Home sp3 Condition: Stable sp3 Diagnosis - Gastroenteritis, nausea vomiting, myasthenia gravis, hypokalemia, hyponatremia sp3 Followup: sp3 - With: Private Physician - When: Upon discharge from the Emergency Department - Reason: Continuance of care Discharge Instructions: - Discharge Summary Sheet sp3 - Dehydration, Adult sp3 - Myasthenia Gravis sp3 Forms: - Medication Reconciliation Form sp3 - Antibiotic Education sp3 - Prescription Opioid Use sp3 - Patient Portal Instructions sp3 - Leadership Thank You Letter sp3 Prescriptions: - ondansetron 4 mg Oral Tablet,disintegrating - take 1 tablet ORAL route every 12 hours as needed for nausea and vomiting; 20 sp3 tablet; Refills: 0, Product Selection Permitted Signatures: Dispatcher [employer] EDChastity Cartagnea, RN RN aa5 Chio Estrada RN RN ss Prokisch, Amanda, RN RN ap3 Brandon Cleveland MD MD sp3 Corrections: (The following items were deleted from the chart) 12:52 12:52 CBC+H.LAB.BRZ ordered. EDMS EDMS 12:52 12:52 COMPREHENSIVE METABOLIC PANEL+C.LAB.BRZ ordered. EDMS EDMS 12:52 12:52 LIPASE+C.LAB.BRZ ordered. EDMS EDMS
[2025-02-25 19:23] VITALS: TEMP 98.2
[2025-02-25 19:24] VITALS: BP 154/87; O2SAT 100
== END 2025-02-25 15:54 | disposition home or self-care (01) ==
LOC: ER 12:21
DX: K52.9 Noninfective gastroenteritis and colitis, unspecified (principal); E87.6 Hypokalemia; E87.1 Hypo-osmolality and hyponatremia; G70.00 Myasthenia gravis without (acute) exacerbation
CPT/HCPCS: 96361; 85025; 36415; 83690; 80053; 96375; 96374; 99285; J2919; J2405; J7030